=== PATIENT | female | born 1995 | race Caucasian/White ===

== ENCOUNTER → 2017-06-01 | Outpatient (CLI) | payer OTHER ==
[~2017-06-01] MED LIST: ACHYD1T PO; ACUTANE; BCP; CYCL10TA9 PO; DOXY20TA5; IBP800T PO; LISD60CA PO; OXYC-12 PO; PHEN37.555 PO
--- NOTE | 2017-06-01 13:20 | Diagnostic Imaging Report ---
EXAM: MRI of the thoracic spine is performed without intravenous contrast. INDICATION: Back pain. FINDINGS: There is satisfactory alignment of the thoracic spine. The vertebral body heights are preserved. There is mild disc desiccation in the mid and lower thoracic spine levels without significant disc height loss. There is a 1.1 cm hyper intense T1 and T2 signal lesion in T11 vertebral body. This is most likely related to hemangioma. No suspicious mass is seen otherwise. There is a minimal disc bulge at T11-12 without significant spinal canal stenosis. No canal stenosis at any level. The foramina are patent at all levels. The spinal cord has normal signal, caliber and contour. IMPRESSION: Minimal disc bulge at T11-12 without significant spinal canal stenosis or foraminal narrowing. Dictated by: Dictated on workstation # [id number]
--- NOTE | 2017-06-01 13:52 | Diagnostic Imaging Report ---
PROCEDURE: MR imaging cervical spine without contrast. TECHNIQUE: Multiplanar, multisequence MR imaging of the cervical spine was performed without contrast. INDICATION: Mid neck pain. FINDINGS: There is a satisfactory alignment of the cervical spine. There is slight straightening of the cervical spine curvature in the mid levels, which could be positional or related to muscle spasm. The vertebral body heights are preserved. The disc heights are also preserved with no disc desiccation. The bone marrow demonstrates no significant signal abnormality. The spinal cord has normal caliber, contour, and signal. The foramen magnum and upper cervical canal are widely patent. There is no significant disc herniation or spinal canal stenosis noted at any level. No foraminal stenosis seen at any level. IMPRESSION: No significant abnormality. Straightening of the mid cervical spine lordotic curvature could be positional or related to muscle spasm. Dictated by: Dictated on workstation # [id number]
== END ==
LOC: RAD 10:43
PROVIDERS: ATTEND Orthopaedic Surgery Orthopaedic Surgery of the Spine
DX: S16.1XXA Strain of muscle, fascia and tendon at neck level, initial encounter (principal); S29.002A Unspecified injury of muscle and tendon of back wall of thorax, initial encounter; X58.XXXA Exposure to other specified factors, initial encounter; Y99.8 Other external cause status
CPT/HCPCS: 72141; 72146

== ENCOUNTER → 2018-03-24 | Outpatient (CLI) | payer OTHER ==
--- NOTE | 2018-03-24 10:52 | Diagnostic Imaging Report ---
PROCEDURE: MRI lumbar spine. TECHNIQUE: Multiplanar, multisequence MRI of the lumbar spine was performed without contrast. INDICATION: Back pain. FINDINGS: Alignment of the lumbar spine is normal. The vertebral body heights are well-maintained. There is no spondylolysis or spondylolisthesis. No fractures are identified. Conus medullaris is seen at L1 and is normal in appearance. Overall, the patient has a somewhat congenitally small spinal canal. T12-L1: The disc is unremarkable. L1-2: The disc is normal in height, signal intensity and morphology. L2-3: There appears to be minimal annular bulging as well as facet disease. There is mild central spinal stenosis. L3-4: There is loss of disc height and signal intensity. There is broad-based annular bulging, facet disease and thickening of the ligamentum flavum. There is mild and moderate central spinal stenosis with encroachment on the lateral recesses bilaterally, left greater than right. There is mild bilateral neural foraminal encroachment. L4-5: There is broad-based annular bulging facet disease and thickening of the ligamentum flavum. There is moderate central spinal stenosis with encroachment upon the lateral recesses bilaterally. There is [id number] bilateral neural foraminal encroachment. L5-S1: The disc is normal in height, signal intensity and morphology. The abdominal aorta is nonaneurysmal. The visualized kidneys are unremarkable. 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 Dictated by: Dictated on workstation # [id number]
== END ==
LOC: RAD 07:38
PROVIDERS: ATTEND Orthopaedic Surgery Orthopaedic Surgery of the Spine
DX: M47.816 Spondylosis without myelopathy or radiculopathy, lumbar region (principal); M51.36 Other intervertebral disc degeneration, lumbar region; Q06.8 Other specified congenital malformations of spinal cord
CPT/HCPCS: 72148